=== PATIENT | female | born 1975 | race Caucasian/White ===

== ENCOUNTER 2020-07-08 08:33 | Inpatient (IN) | payer OTHER ==
[~2020-07-08] VITALS: Ht 175.3 cm; Wt 76.3 kg
--- NOTE | 2020-07-08 09:09 | NUR ---
S/P SADAF MASTECTOMY 07/03, LEFTJP DRAIN WITH INCREASED BLOOD DRAINAGE SINCE 07/07 AT 1830. SEEN AT [facility] AND [employer] DRESSING PLACED. PT WITH INCREASED PAIN TODAY 12/21 AND BLEEDING CONTINUES IN ISMAEL DRAIN. CALL LIGHT W/I REACH, PROVIDER EVAL PENDING
[2020-07-08] MEDS ORDERED: MORPHINE SULFATE 4 MG/ML, 1ML IVPush PRN ×2 (09:30→13:00)
--- NOTE | 2020-07-08 09:38 | NUR ---
DR NOBLE AT BEDSIDE, PT ASSESSMENT REV AND QUESTIONS ANSWERED.
[2020-07-08] MEDS ORDERED: MORPHINE SULFATE 4 MG/ML, 1ML ONE (09:41)
[2020-07-08] MEDS ORDERED: ONDANSETRON 2MG/ML, 2ML ONE (09:41)
--- NOTE | 2020-07-08 09:46 | NUR ---
PT MED NOTED FOR PAIN 12/21. US TECH AT BEDSIDE, CALL LIGHT W/I REACH
[2020-07-08 09:47] LABS: BASOPHILS % (AUTO) 0 % (0-1); EOSINOPHILS % (AUTO) 1 % (1-7); LYMPHOCYTES % (AUTO) 14 % (22-44); MEAN CORPUSCULAR HEMOGLOBIN 27.5 pg (27.0-34.8); MEAN CORPUSCULAR HGB CONC 32.4 g/dL (32.4-35.8); MEAN PLATELET VOLUME 10.2 fL (7.4-10.4); MONOCYTES % (AUTO) 7 % (2-9); NEUTROPHILS % (AUTO) 79 % (42-75); PLATELET COUNT 129 x10^3/uL (130-400); RED CELL DISTRIBUTION WIDTH 13.8 % (9.6-15.2)
[2020-07-08 09:48] LABS: MD NO
[2020-07-08 09:56] LABS: ALBUMIN 3.5 g/dL (3.4-5.0); ANION GAP 5 mmol/L (5-15); CALCIUM 8.9 mg/dL (8.5-10.1); CHLORIDE 107 mmol/L (98-107); CREATININE 0.76 mg/dL (0.55-1.02)
--- NOTE | 2020-07-08 09:58 | NUR ---
ALL TESTS RESULTED. CHART UP FOR RECHECK, PT AWARE. NAD NOTED, VSS
[2020-07-08 09:59] LABS: INTERNATIONAL NORMALIZED RATIO 1.01 (0.93-1.1); PROTHROMBIN TIME 10.8 Seconds (9.6-11.5)
[2020-07-08] MEDS ORDERED: ONDANSETRON 2MG/ML, 2ML IVPush ONE (10:00)
--- NOTE | 2020-07-08 10:08 | NUR ---
bREAK rn- PT TO CT
--- NOTE | 2020-07-08 10:43 | NUR ---
PT RTD FROM CT, PCXR COMPLETED. PT OOB ANDAMBULATED TO BATHROOM, RN ESCORT. PT VOIDED AND RTD TO ROOM W/O INCIDENT. CALL LIGHT W/I REACH. TEST RESULTS PENDING
--- NOTE | 2020-07-08 10:57 | NUR ---
ALL TESTS RESULTED, CHART UP FOR RECHECK. PT AWARE
[2020-07-08] MEDS ORDERED: SODIUM CHLORIDE FLUSH 10ML SYR IVF ONE (11:00)
[2020-07-08] MEDS ORDERED: OMNIPAQUE 350 MG/ML, 100ML BOTTLE ONE (11:19)
[2020-07-08] MEDS ORDERED: LORazepam 2 MG/ML, 1ML IV ONE (11:28)
[2020-07-08] MEDS ORDERED: LORazepam 2 MG/ML, 1ML ONE (11:33)
[2020-07-08] MEDS ORDERED: HEPARIN 25,000 UNITS/250ML PMX 250 ML IV PRN (12:00)
[2020-07-08] MEDS ORDERED: HEPARIN 5,000 UNITS/ML, 1ML IV PRN (12:00)
[2020-07-08] MEDS ORDERED: HEPARIN 5,000 UNITS/ML, 1ML IV ONE (12:00)
[2020-07-08] MEDS ORDERED: HEPARIN 25,000 UNITS/250ML PMX 250 ML ONE (12:07)
[2020-07-08] MEDS ORDERED: HEPARIN 5,000 UNITS/ML, 1ML ONE ×2 (12:07→12:26)
[2020-07-08] MEDS ORDERED: ENALAPRILAT 1.25 MG/ML, 2ML IVPush PRN (12:30)
[2020-07-08] MEDS ORDERED: ONDANSETRON 2MG/ML, 2ML IVPush PRN (12:30)
[2020-07-08 13:27] VITALS: BP 170/82
[2020-07-08] MEDS: LABETALOL 5MG/ML, 20ML IVPush PRN (13:34)
[2020-07-08] MEDS ORDERED: HYDROcodone/APAP 5/325 TABLET PO PRN (14:00)
[2020-07-08 15:24] VITALS: BP 164/87
[2020-07-08] MEDS: ACETAMINOPHEN 325 MG TABLET PO PRN (18:28)
[2020-07-08 19:57] VITALS: BP 130/81
[2020-07-09 00:26] VITALS: BP 155/69
[2020-07-09] MEDS: ACETAMINOPHEN 325 MG TABLET PO PRN ×3 (00:41→19:37)
[2020-07-09 05:48] LABS: BASOPHILS % (AUTO) 1 % (0-1); EOSINOPHILS % (AUTO) 3 % (1-7); LYMPHOCYTES % (AUTO) 35 % (22-44); MEAN CORPUSCULAR HEMOGLOBIN 28.1 pg (27.0-34.8); MEAN CORPUSCULAR HGB CONC 33.2 g/dL (32.4-35.8); MEAN PLATELET VOLUME 9.5 fL (7.4-10.4); MONOCYTES % (AUTO) 9 % (2-9); NEUTROPHILS % (AUTO) 52 % (42-75); PLATELET COUNT 120 x10^3/uL (130-400); RED BLOOD COUNT 4.02 x10^6/uL (3.82-5.3); RED CELL DISTRIBUTION WIDTH 13.8 % (9.6-15.2)
[2020-07-09 05:50] LABS: MD NO
[2020-07-09 06:05] LABS: ALANINE AMINOTRANSFERASE 39 U/L (12-78); ALBUMIN 3.1 g/dL (3.4-5.0); ANION GAP 4 mmol/L (5-15); CALCIUM 8.6 mg/dL (8.5-10.1); CHLORIDE 107 mmol/L (98-107)
[2020-07-09 06:07] LABS: ALKALINE PHOSPHATASE 63 U/L (45-117); BILIRUBIN,TOTAL 0.4 mg/dL (0.2-1.0); CREATININE 0.62 mg/dL (0.55-1.02); TOTAL PROTEIN 6.6 g/dL (6.4-8.2)
[2020-07-09 08:17] VITALS: BP 157/92
[2020-07-09] MEDS ORDERED: PHARMACY INSTRUCTION MC PRN ×2 (09:30→17:30)
[2020-07-09] MEDS ORDERED: ENOXAPARIN 80 MG/0.8 ML SQ SCH (10:00)
[2020-07-09 12:49] VITALS: BP 158/87
[2020-07-09] MEDS ORDERED: HEPARIN 25,000 UNITS/250ML PMX 250 ML IV PRN ×3 (13:30→17:30)
[2020-07-09] MEDS ORDERED: HEPARIN 5,000 UNITS/ML, 1ML IVPush PRN ×2 (13:30→17:30)
[2020-07-09] MEDS: ENOXAPARIN 80 MG/0.8 ML SQ SCH (18:03)
[2020-07-09 20:50] VITALS: BP 147/76
[2020-07-10 02:02] VITALS: BP_SYST 174; BP_SYST 180; BP_DIAS 84
[2020-07-10] MEDS: ACETAMINOPHEN 325 MG TABLET PO PRN ×2 (02:33→09:17)
[2020-07-10] MEDS: LABETALOL 5MG/ML, 20ML IVPush PRN (02:35)
[2020-07-10 05:39] LABS: BASOPHILS % (AUTO) 1 % (0-1); EOSINOPHILS % (AUTO) 2 % (1-7); LYMPHOCYTES % (AUTO) 26 % (22-44); MEAN CORPUSCULAR HEMOGLOBIN 27.5 pg (27.0-34.8); MEAN CORPUSCULAR HGB CONC 32.1 g/dL (32.4-35.8); MEAN PLATELET VOLUME 9.5 fL (7.4-10.4); MONOCYTES % (AUTO) 9 % (2-9); NEUTROPHILS % (AUTO) 63 % (42-75); PLATELET COUNT 138 x10^3/uL (130-400); RED BLOOD COUNT 4.26 x10^6/uL (3.82-5.3); RED CELL DISTRIBUTION WIDTH 13.9 % (9.6-15.2)
[2020-07-10 05:42] LABS: MD NO
[2020-07-10 05:45] VITALS: BP_SYST 160; BP_DIAS 82; BP_DIAS 83
[2020-07-10 05:50] LABS: ANION GAP 6 mmol/L (5-15); CALCIUM 8.7 mg/dL (8.5-10.1); CHLORIDE 107 mmol/L (98-107); CREATININE 0.72 mg/dL (0.55-1.02)
[2020-07-10] MEDS: ENOXAPARIN 80 MG/0.8 ML SQ SCH (06:04)
[2020-07-10] MEDS ORDERED: ENOX80SY4 SQ (07:28)
[2020-07-10] MEDS ORDERED: AMLO5TAB4 PO (07:34)
[2020-07-10 07:56] VITALS: BP 177/84
[2020-07-10] MEDS: AMLODIPINE 5 MG TABLET PO SCH ×2 (07:56→08:04)
== END 2020-07-10 09:42 | disposition home or self-care (01) | DRG 604 ==
LOC: ED 11:14 → SUATTDRO 12:14 → 5SO 12:17 → ORIP 13:13 → 5SO 13:14 → 4NW 07-10 01:50
PROVIDERS: ADMIT Internal Medicine; ATTEND Internal Medicine
DX: S20.212A Contusion of left front wall of thorax, initial encounter (principal); I26.99 Other pulmonary embolism without acute cor pulmonale; D68.69 Other thrombophilia; K76.89 Other specified diseases of liver; X58.XXXA Exposure to other specified factors, initial encounter; Y93.89 Activity, other specified; Y92.89 Other specified places as the place of occurrence of the external cause; Y99.8 Other external cause status; Z79.899 Other long term (current) drug therapy; Z80.0 Family history of malignant neoplasm of digestive organs; Z85.3 Personal history of malignant neoplasm of breast; Z90.13 Acquired absence of bilateral breasts and nipples; Z92.3 Personal history of irradiation
CPT/HCPCS: 36415; 71045; 71275; 80048; 80053; 82040; 85014; 85018; 85025; 85520; 85610; 85730; 93005; 96374; 96375; G0378; J1644; J1650; J2405; Q9967; J2060; J2270